=== PATIENT | female | born 2000 | race Two or more races ===

== ENCOUNTER 2021-01-06 21:41 | Inpatient (IN) | payer OTHER ==
[~2021-01-06] VITALS: Ht 170.2 cm; Wt 62.6 kg
[2021-01-06] MEDS ORDERED: PRENATAL CAPLE1 EAC1 PO (22:07)
== END 2021-01-08 09:28 | disposition home or self-care (01) | DRG 833 ==
LOC: OBS/DEL 21:41 → LDR 01-07 09:09
PROVIDERS: ADMIT Obstetrics & Gynecology Maternal & Fetal Medicine; ATTEND Obstetrics & Gynecology Maternal & Fetal Medicine
PROC: 4A1HXFZ Monitoring of Products of Conception, Cardiac Rhythm, External Approach (ICD-10-PCS; principal; 2021-01-07)
PROC: BU46ZZZ Ultrasonography of Uterus (ICD-10-PCS; 2021-01-07)
PROC: BY4CZZZ Ultrasonography of Second Trimester, Single Fetus (ICD-10-PCS; 2021-01-07)
DX: O60.02 Preterm labor without delivery, second trimester (principal); Z3A.23 23 weeks gestation of pregnancy

== ENCOUNTER 2021-01-19 13:09 | Outpatient (CLI) | payer OTHER ==
[~2021-01-19 13:09] MED LIST: PRENATAL CAPLE1 EAC1 PO
== END 2021-01-19 13:48 | disposition home or self-care (01) ==
LOC: NST 13:09
PROVIDERS: ATTEND Obstetrics & Gynecology
DX: Z34.82 Encounter for supervision of other normal pregnancy, second trimester (principal)

== ENCOUNTER 2021-02-02 13:58 | Outpatient (CLI) | payer OTHER | END 2021-02-02 14:46 | disposition home or self-care (01) | LOC: NST 13:58 | PROVIDERS: ATTEND Obstetrics & Gynecology | DX: Z34.83 Encounter for supervision of other normal pregnancy, third trimester (principal) ==

== ENCOUNTER 2021-04-15 13:00 | Inpatient (IN) | payer OTHER ==
[~2021-04-15] VITALS: Ht 170.2 cm; Wt 68.0 kg
[2021-04-27] MEDS ORDERED: INTEGRA F CAPS1 EAC1 (13:59)
== END 2021-04-29 11:24 | disposition home or self-care (01) | DRG 807 ==
LOC: LDR 04-27 10:32 → OB/GYN 04-27 10:32
PROVIDERS: ADMIT Obstetrics & Gynecology; ATTEND Obstetrics & Gynecology
PROC: 10E0XZZ Delivery of Products of Conception, External Approach (ICD-10-PCS; principal; 2021-04-27)
PROC: 0KQM0ZZ Repair Perineum Muscle, Open Approach (ICD-10-PCS; 2021-04-27)
PROC: 4A1HXCZ Monitoring of Products of Conception, Cardiac Rate, External Approach (ICD-10-PCS; 2021-04-27)
PROC: 0W8NXZZ Division of Female Perineum, External Approach (ICD-10-PCS; 2021-04-27)
DX: O70.1 Second degree perineal laceration during delivery (principal); Z37.0 Single live birth; Z3A.39 39 weeks gestation of pregnancy; Z20.822 Contact with and (suspected) exposure to COVID-19

== ENCOUNTER 2021-04-22 10:56 | Outpatient (CLI) | payer OTHER | END 2021-04-22 12:03 | disposition home or self-care (01) | LOC: NST 10:56 | PROVIDERS: ATTEND Obstetrics & Gynecology Maternal & Fetal Medicine | DX: Z34.83 Encounter for supervision of other normal pregnancy, third trimester (principal) ==

== ENCOUNTER 2024-05-03 14:15 | Inpatient (IN) | payer OTHER ==
[~2024-05-03] VITALS: Ht 170.2 cm; Wt 64.0 kg
[~2024-05-03 14:15] MED LIST changes: +INTEGRA F CAPS1 EAC1
[2024-05-05] VITALS (9 sets, daily range): BP systolic 85–114; BP diastolic 60–77
[2024-05-05] MEDS ORDERED: AMPICILLIN SODIUM 1,000 MG VIAL IV SCH ×2 (10:24→13:00)
[2024-05-05] MEDS ORDERED: ONDANSETRON HCL 2 MG/ML VIAL IV ONE (10:30)
[2024-05-05] MEDS ORDERED: RINGERS SOLUTION,LACTATED 1,000 ML IV SCH (10:30)
[2024-05-05] MEDS ORDERED: MORPHINE SULFATE 4 MG/ML CARTRIDGE IV PRN (10:30)
[2024-05-05] MEDS ORDERED: AMPICILLIN SODIUM 2,000 MG VIAL IV ONE (10:30)
[2024-05-05 10:34] LABS: HEMATOCRIT 38.9 % (36.0-45.00); HEMOGLOBIN 12.9 g/dL (12.0-15.00); MEAN CORPUSCULAR HEMOGLOBIN 29.9 pg (27.00-32.0); MEAN CORPUSCULAR HGB CONC 33.2 g/dl (32.0-36.0); PLATELET COUNT 164 K/uL (150-450); RED BLOOD COUNT 4.32 M/uL (4.00-6.00); RED CELL DISTRIBUTION WIDTH 14.1 % (11.5-14.5)
[2024-05-05 10:35] LABS: PH,URINE 7.5 (5.0-8.0); URINE APPEARANCE Clear; URINE BILIRRUBIN Negative (NEGATIVE); URINE BLOOD Negative; URINE COLOR Yellow; URINE GLUCOSE Negative (NEGATIVE); URINE KETONE Negative (NEGATIVE); URINE LEUKOCYTE Trace; URINE NITRATE Negative; URINE PROTEIN Negative (NEGATIVE); URINE UROBILINOGEN 0.2 E.U./dl
[2024-05-05 10:36] LABS: URINE BACTERIA 331.5 uL (0.0-1933); URINE EPITHELIAL CELLS 31.3 uL (0.0-38.8); URINE RBC 5.8 uL (0.0-20.8); URINE WBC 15.4 uL (0.0-23.2)
[2024-05-05 10:38] LABS: URINE CAST 0.44 uL (0.0-1.40)
[2024-05-05 10:52] LABS: INR 0.94; PARTIAL THROMBOPLASTIN TIME 27.9 SECONDS (22.0-34.0); PROTHROMBIN TIME 10.3 SECONDS (9.0-11.5)
[2024-05-05] MEDS ORDERED: OXYTOCIN 20 UNITS/1000ML RL PIGGYBAG IV ONE (10:56)
[2024-05-05] MEDS ORDERED: LIDOCAINE HCL 1% 10ML VIAL ONE (10:56)
[2024-05-05] MEDS ORDERED: CHLORHEXIDINE GLUCONATE 120 ML BOTTLE TOP ONE ×2 (10:56→12:00)
[2024-05-05] MEDS ORDERED: ERYTHROMYCIN BASE OPHT 1GM EACH TUBE OP ONE ×2 (10:56→12:15)
[2024-05-05 10:57] LABS: ALBUMIN 2.9 gm/dL (3.4-5.0); BILIRUBIN TOTAL 0.41 mg/dL (0.3-1.2); CALCIUM 8.8 mg/dL (8.5-10.1); CREATININE SERUM 0.56 mg/dL (0.55-1.02); GFR 130.86; GLOBULINA 3.5 G/DL (2.4-3.5); POTASSIUM 3.55 mEq/L (3.5-5.1); TOTAL PROTEIN 6.4 gm/dL (6.4-8.2)
[2024-05-05] MEDS ORDERED: ONDANSETRON HCL 2 MG/ML VIAL IV PRN (11:00)
[2024-05-05] MEDS ORDERED: OXYTOCIN 1,000 ML IV ONE (12:00)
[2024-05-05] MEDS ORDERED: IBUprofen 400 MG TABLET PO PRN (12:00)
[2024-05-05] MEDS ORDERED: LIDOCAINE HCL 1% 10ML VIAL IJ ONE (12:15)
[2024-05-05] MEDS ORDERED: SENNA/DOCUSATE SODIUM 1 TAB TABLET PO SCH (21:00)
[2024-05-06] VITALS: BP 113/71
[2024-05-06 06:50] LABS: HEMATOCRIT 33.8 % (36.0-45.00); HEMOGLOBIN 11.8 g/dL (12.0-15.00); MEAN CELL VOLUME 88.5 fL (80.00-100.00); MEAN CORPUSCULAR HEMOGLOBIN 30.9 pg (27.00-32.0); MEAN CORPUSCULAR HGB CONC 34.9 g/dl (32.0-36.0); PLATELET COUNT 145 K/uL (150-450); RED BLOOD COUNT 3.81 M/uL (4.00-6.00); RED CELL DISTRIBUTION WIDTH 14.1 % (11.5-14.5)
[2024-05-06 08:00] VITALS: BP 104/67
[2024-05-06] MEDS ORDERED: PNV,CALCIUM 72/IRON/FOLIC ACID 1 TAB TABLET PO SCH (09:00)
[2024-05-06 16:04] VITALS: BP 101/63
[2024-05-06 23:30] VITALS: BP 97/64
[2024-05-07] MEDS ORDERED: KETO10TA2 PO (07:29)
[2024-05-07 08:00] VITALS: BP 116/75
== END 2024-05-07 10:51 | disposition home or self-care (01) | DRG 807 ==
LOC: LDR 14:15 → OB/GYN 05-05 10:03 → LDR 05-05 10:03 → OB/GYN 05-05 12:22
PROVIDERS: Obstetrics & Gynecology Gynecology; ADMIT Obstetrics & Gynecology; ATTEND Obstetrics & Gynecology
PROC: 10E0XZZ Delivery of Products of Conception, External Approach (ICD-10-PCS; principal; 2024-05-05)
PROC: 0KQM0ZZ Repair Perineum Muscle, Open Approach (ICD-10-PCS; 2024-05-05)
PROC: 4A1HXCZ Monitoring of Products of Conception, Cardiac Rate, External Approach (ICD-10-PCS; 2024-05-05)
DX: O70.1 Second degree perineal laceration during delivery (principal); O99.824 Streptococcus B carrier state complicating childbirth; Z37.0 Single live birth; Z3A.37 37 weeks gestation of pregnancy